=== PATIENT | male | born 1965 | race African-American/Black ===

== ENCOUNTER 2017-02-19 04:36 | Emergency (ER) | payer SELFPAY ==
[~2017-02-19] VITALS: Ht 182.9 cm; Wt 120.0 kg
[2017-02-19] MEDS ORDERED: ASPI-1093 PO (05:18)
[2017-02-19] MEDS ORDERED: AMLO-511 PO (05:18)
[2017-02-19 07:00] VITALS: BP 139/87
== END 2017-02-19 07:51 | disposition left against medical advice (07) ==
LOC: EMS 04:39
DX: S01.511A Laceration without foreign body of lip, initial encounter (principal); S05.32XA Ocular laceration without prolapse or loss of intraocular tissue, left eye, initial encounter; I10 Essential (primary) hypertension; Y04.0XXA Assault by unarmed brawl or fight, initial encounter; Y93.89 Activity, other specified; Y92.89 Other specified places as the place of occurrence of the external cause; Y99.8 Other external cause status; Z53.21 Procedure and treatment not carried out due to patient leaving prior to being seen by health care provider